=== PATIENT | male | born 1995 | race Caucasian/White ===

== ENCOUNTER 2018-12-05 03:06 | Emergency (ER) | payer OTHER ==
[~2018-12-05] VITALS: Ht 170.2 cm; Wt 56.7 kg
--- NOTE | 2018-12-05 03:24 | NUR ---
BIBSELF FROM HOME. AAOX4. NAD, BREATHING EVEN AND UNLABORED. AMBULATORY. C/O RIGHT FIFTH DIGIT PAIN. PAIN IS PRESENT WITH MOVEMENT. NOTED SWELLING ON PROXIMAL INTERPHALANGE. PT ABLE TO MOVE FINGER WITHOUT LOSING SENSATION. PT REPORTS THAT HE WAS CRACKING HIS FINGERS YESTERDAY. TO ER BED 9. AWAITING MD FOR EMMETT
--- NOTE | 2018-12-05 03:31 | NUR ---
XRAY AT BEDSIDE
--- NOTE | 2018-12-05 05:08 | NUR ---
Patient discharged to home in stable condition. Written and verbal after care instructions given. Patient verbalizes understanding of instruction. Pt ambulatory with a steady gait
[2018-12-05 05:10] VITALS: BP 114/68
== END 2018-12-05 05:11 | disposition home or self-care (01) ==
LOC: ER 03:10
DX: M79.644 Pain in right finger(s) (principal)
CPT/HCPCS: 73140-TC